=== PATIENT | female | born 1970 | race African-American/Black ===

== ENCOUNTER 2016-10-04 18:36 | Emergency (ER) | payer BC ==
[~2016-10-04] VITALS: Ht 170.2 cm; Wt 87.1 kg
[2016-10-04 19:11] LABS: URINE SOURCE CLEAN CATCH
[2016-10-04 19:14] LABS: URINE APPEARANCE TURBID; URINE BILIRUBIN NEG (NEG); URINE BLOOD NEG (NEG); URINE COLOR DK YELLOW; URINE GLUCOSE NEG (NEG); URINE KETONE TRACE (NEG); URINE LEUKOCYTE ESTERASE 2+ (NEG); URINE NITRATE NEG (NEG); URINE PROTEIN 2+ (NEG); URINE SPECIFIC GRAVITY 1.024 (1.003-1.035); URINE UROBILINOGEN 0.2 MG/DL (NEG)
[2016-10-04 19:17] LABS: CULTURE INDICATED? YES; URINE BACTERIA AUWI NEG (NEGATIVE); URINE SQUAMOUS EPITHELIAL CELL MOD /[HPF]; UWBCS1 AUWI 25-50 (0-5)
[2016-10-04 19:59] LABS: CALCIUM SERUM 7.6 mg/dL (8.4-10.2)
[2016-10-04 20:01] LABS: POTASSIUM 3.1 mmol/L (3.5-5.1)
[2016-10-08 16:44] LABS: CHLAMYDIA TRACH Not Detected (Not Detected); N GONOR Not Detected (Not Detected)
[2016-11-28] MEDS ORDERED: OMNICEF300 M1 PO (14:03)
[2016-11-28] MEDS ORDERED: TUMS500 MG PO (14:03)
== END 2016-10-04 21:32 | disposition home or self-care (01) ==
LOC: CED 18:36 → CFTX 18:36
PROVIDERS: Nurse Practitioner Family
DX: A59.09 Other urogenital trichomoniasis (principal); E87.6 Hypokalemia; E87.1 Hypo-osmolality and hyponatremia; E86.0 Dehydration; N39.0 Urinary tract infection, site not specified
CPT/HCPCS: 36415; 80048; 81003; 84703; 87086; 87491; 87591; 87808; 87905; 96372; 99283; J0696